=== PATIENT | male | born 1955 | race Caucasian/White ===

== ENCOUNTER 2023-04-08 05:25 | Day surgery (SDC) | payer OTHER ==
[2023-04-05 14:57] VITALS: BMI 28.8
[2023-04-08 10:15] LABS: BASO % 0.7 % (0-2.0); EOS % 3.3 % (0-4.5); HEMATOCRIT 48.6 % (35.4-49); HEMOGLOBIN 16.1 GM/dL (11.7-16.9); LYMPH % 20.9 % (8-40); MCH 30.2 pg (25.7-33.7); MCHC 33.1 g/dl (32.0-35.9); MEAN CELL VOLUME 91.2 fl (80-96); MEAN PLT VOLUME 10.6 fl (7.5-11.1); MONO % 8.6 % (3.8-10.2); NEUT % 66.5 % (42.8-82.8); PLATELET COUNT 151 10^3/uL (134-434); RBC 5.33 M/mm3 (4.00-5.60); RDW 13.8 % (11.9-15.9); WHITE BLOOD COUNT 6.5 K/mm3 (4.0-10.0)
[2023-04-08 10:28] LABS: INR 1.17 (0.83-1.09); PROTHROMBIN TIME (PATIENT) 13.6 SEC (9.7-13.0)
[2023-04-08] MEDS ORDERED: MIDAZOLAM HCL 2 MG/2 ML SINGLE DOSE VIAL ONE (11:36)
[2023-04-08] MEDS ORDERED: FENTANYL CITRATE/PF 50 MCG/ML VIAL ONE (11:36)
[2023-04-08] MEDS ORDERED: SODIUM CHLORIDE 500 ML IV ONE (12:00)
[2023-04-08] MEDS ORDERED: MIDAZOLAM HCL 2 MG/2 ML SINGLE DOSE VIAL IVPUSH ONE ×2 (12:07→12:25)
[2023-04-08] MEDS ORDERED: FENTANYL CITRATE/PF 50 MCG/ML VIAL IVPUSH ONE ×2 (12:07→12:25)
[2023-04-08 15:48] VITALS: RESP 20; TEMP 97.2
[2023-04-08 16:05] VITALS: BP 160/95; PULSE 74
== END 2023-04-08 14:52 | disposition home or self-care (01) ==
LOC: JRADIR 05:25
PROVIDERS: ATTEND Urology
PROC: 0T9030Z Drainage of Right Kidney with Drainage Device, Percutaneous Approach (ICD-10-PCS; principal; 2023-04-08)
DX: N13.39 Other hydronephrosis (principal)
CPT/HCPCS: 36415; 50432; 85025; 85610; 87102; 87116; 87206; 87210; 88108

== ENCOUNTER 2023-08-26 03:34 | Day surgery (SDC) | payer OTHER ==
[2023-08-20 13:42] VITALS: BMI 27.3
[2023-08-26 10:19] LABS: BASO % 0.7 % (0-2.0); EOS % 3.4 % (0-4.5); HEMATOCRIT 52.9 % (35.4-49); HEMOGLOBIN 17.5 GM/dL (11.7-16.9); LYMPH % 20.6 % (8-40); MCH 30.5 pg (25.7-33.7); MEAN CELL VOLUME 92.5 fl (80-96); MONO % 7.9 % (3.8-10.2); NEUT % 67.4 % (42.8-82.8); PLATELET COUNT 147 10^3/uL (134-434); RBC 5.71 M/mm3 (4.00-5.60); WHITE BLOOD COUNT 6.8 K/mm3 (4.0-10.0)
[2023-08-26 10:51] LABS: POTASSIUM 4.3 mmol/L (3.5-5.1)
[2023-08-26 10:53] LABS: BLOOD UREA NITROGEN 30.9 mg/dL (7-18); CALCIUM 9.7 mg/dL (8.5-10.1)
[2023-08-26 10:54] LABS: INR 1.17 (0.83-1.09); PROTHROMBIN TIME (PATIENT) 13.5 SEC (9.7-13.0)
[2023-08-26 10:57] LABS: CREATININE 1.5 mg/dL (0.55-1.3)
[2023-08-26] MEDS ORDERED: FENTANYL CITRATE/PF 50 MCG/ML VIAL ONE ×4 (12:00→14:20)
[2023-08-26] MEDS ORDERED: MIDAZOLAM HCL 2 MG/2 ML SINGLE DOSE VIAL ONE (12:00)
[2023-08-26] MEDS ORDERED: cefTRIAXone SODIUM 1 GM VIAL ONE (12:19)
[2023-08-26] MEDS ORDERED: SODIUM CHLORIDE 500 ML IV SCH (12:30)
[2023-08-26] MEDS: FENTANYL CITRATE/PF 50 MCG/ML VIAL IVPUSH SCH ×4 (12:42→14:20)
[2023-08-26] MEDS: MIDAZOLAM HCL 2 MG/2 ML SINGLE DOSE VIAL IVPUSH SCH ×2 (12:42→13:31)
[2023-08-26] MEDS ORDERED: hydrALAZINE HCL 20 MG/ML VIAL ONE (14:10)
[2023-08-26] MEDS ORDERED: hydrALAZINE HCL 20 MG/ML VIAL IVPUSH ONE ×2 (14:12→14:32)
[2023-08-26 16:54] VITALS: BP 115/66; PULSE 75; RESP 18; TEMP 98.2
== END 2023-08-26 16:56 | disposition home or self-care (01) ==
LOC: JRADIR 03:34
PROVIDERS: ATTEND Urology
PROC: 0T25X0Z Change Drainage Device in Kidney, External Approach (ICD-10-PCS; principal; 2023-08-26)
DX: N13.1 Hydronephrosis with ureteral stricture, not elsewhere classified (principal)
CPT/HCPCS: 36415; 50693; 80048; 85025; 85610

== ENCOUNTER 2023-09-02 04:48 | Day surgery (SDC) | payer OTHER ==
[2023-08-30 14:26] VITALS: BMI 27.8
[2023-09-02] MEDS ORDERED: MIDAZOLAM HCL 2 MG/2 ML SINGLE DOSE VIAL ONE (11:15)
[2023-09-02] MEDS ORDERED: FENTANYL CITRATE/PF 50 MCG/ML VIAL ONE ×3 (11:15→12:04)
[2023-09-02] MEDS: FENTANYL CITRATE/PF 50 MCG/ML VIAL IVPUSH SCH ×3 (11:17→12:05)
[2023-09-02] MEDS: MIDAZOLAM HCL 2 MG/2 ML SINGLE DOSE VIAL IVPUSH SCH ×2 (11:17→11:46)
[2023-09-02] MEDS ORDERED: cefTRIAXone SODIUM 1 GM VIAL ONE (11:49)
[2023-09-02] MEDS ORDERED: CEFTRIAXONE 1 GM in DEXTROSE 5%-WATER - 50 ML IVPB ONE (11:50)
[2023-09-02] MEDS ORDERED: ACETAMINOPHEN 1000 MG/100 ML BAG IVPB ONE (12:20)
[2023-09-02] MEDS ORDERED: SODIUM CHLORIDE 500 ML IV ONE (13:15)
[2023-09-02 13:50] VITALS: BP 139/79; PULSE 55; RESP 16; TEMP 98.2
== END 2023-09-02 14:00 | disposition home or self-care (01) ==
LOC: JRADIR 04:48
PROVIDERS: ATTEND Urology
PROC: 0T768DZ Dilation of Right Ureter with Intraluminal Device, Via Natural or Artificial Opening Endoscopic (ICD-10-PCS; principal; 2023-09-02)
DX: N13.5 Crossing vessel and stricture of ureter without hydronephrosis (principal)
CPT/HCPCS: 50693

== ENCOUNTER 2024-11-30 10:28 | Emergency (ER) | payer MEDICARE, OTHER ==
[2024-11-30 11:09] VITALS: BP 170/97; PULSE 62; RESP 16; TEMP 97.7; BMI 28.1
[2024-11-30] MEDS ORDERED: HYDROCORTISONE 1% TOPICAL LOTION 118 ML BOTTLE TP ONE (12:25)
[2024-11-30] MEDS ORDERED: AMMONIUM LACTATE 12% LOTION 225 GM BOTTLE TP ONE (12:30)
[2024-11-30] MEDS: ZINC OXIDE 20% TOPICAL OINTMENT 30 GM TUBE TP ONE (12:38)
== END 2024-11-30 13:01 | disposition home or self-care (01) ==
LOC: JERFT 10:28
DX: R21 Rash and other nonspecific skin eruption (principal)
CPT/HCPCS: 99283-25